=== PATIENT | female | born 1975 | race Hispanic/Latino ===

== ENCOUNTER 2022-08-30 09:13 | Emergency (ER) | payer MEDICAID ==
[~2022-08-30] VITALS: Ht 152.4 cm; Wt 92.5 kg
[2022-08-30 10:58] LABS: BASOPHILS % (AUTO) 0.3 % (0.0-5.0); EOSINOPHILS % (AUTO) 1.5 % (0.0-8.0); LYMPHOCYTES % (AUTO) 20.9 % (21.0-51.0); MEAN CORPUSCULAR HEMOGLOBIN 29.4 pg (27.0-33.0); MEAN CORPUSCULAR HGB CONC 33.1 g/dL (32.0-36.0); MEAN CORPUSCULAR VOLUME 88.8 fL (79-99); MONOCYTES % (AUTO) 7.6 % (3.0-13.0); NEUTROPHILS % (AUTO) 69.4 % (40.0-77.0); PLATELET COUNT (AUTO) 397 K/uL (130-400); RED BLOOD CELL COUNT(AUTO) 3.94 MIL/uL (4.00-5.50); RED CELL DISTRIBUTION WIDTH 13.9 % (11.0-15.5); WHITE BLOOD COUNT (AUTO) 7.3 K/uL (4.8-10.8)
[2022-08-30 11:07] LABS: CREATININE 0.6 mg/dL (0.5-1.5); POTASSIUM 3.6 mmol/L (3.5-5.1)
[2022-08-30 11:12] LABS: ALBUMIN 3.3 g/dL (3.5-5.0); TOTAL PROTEIN, SERUM 7.8 g/dL (6.0-8.3)
[2022-08-30] MEDS ORDERED: CLIN300C3 PO (12:06)
[2022-08-30] MEDS ORDERED: IBUP-2070 PO (12:06)
[2022-08-30] MEDS ORDERED: CLINDAMYCIN 150 MG CAP PO ONE (12:30)
[2022-08-30] MEDS ORDERED: CEFTRIAXONE 1G VIAL IM ONE (12:30)
[2022-08-30 12:46] VITALS: BP 114/68
== END 2022-08-30 12:53 | disposition home or self-care (01) ==
LOC: EDH 09:13
DX: L02.415 Cutaneous abscess of right lower limb (principal); Z98.84 Bariatric surgery status; Z87.19 Personal history of other diseases of the digestive system; Z88.0 Allergy status to penicillin; Z79.899 Other long term (current) drug therapy
CPT/HCPCS: 99285; 80053; 85025; 87040 ×2; 83605; 36415; 76882; 96372; J0696